=== PATIENT | male | born 1990 | race Caucasian/White ===

== ENCOUNTER 2019-05-14 20:36 | Emergency (ER) | payer OTHER ==
[~2019-05-14] VITALS: Ht 157.5 cm; Wt 81.6 kg
--- NOTE | 2019-05-14 20:45 | NUR ---
TO LOBBY A/W BED AMBULATORY, EKG DONE NSR.
--- NOTE | 2019-05-14 21:36 | NUR ---
PT AMBULATED TO ER BED 12
--- NOTE | 2019-05-14 21:45 | NUR ---
29 Y/O MALE PRESENTS TO ED, C/O CHEST PAIN 01/19. PT STATES PAIN IS INTERMITTENT FOR THE PAST 2 WEEKS, WORSENING TODAY. PAIN DOES NOT RADIATE. NO HEADACHE OR DIZZINESS. PT DENIES ANY SOB/DIFFICULTY BREATHING. PT DENIES TAKING ANY MEDICATIONS FOR PAIN. PT AT STABLE CONDITION. PT PLACED ON MONITOR.
[2019-05-14] MEDS ORDERED: KETOROLAC 30 MG/ML VIAL IM ONE (22:00)
[2019-05-14 22:35] VITALS: BP 126/65
--- NOTE | 2019-05-14 22:35 | NUR ---
PT DISCHARGED WITH PAPERWORK. RX MOTRIN. EDUCATED PT REGARDING MEDICATION. EDUCATED PT REGARDING D/C DIAGNOSIS AND INSTRUCTIONS. PT VERBALIZED UNDERSTANDING OF TEACHING. TOLD PT TO FOLLOW UP WITH PCP AND WHEN TO RETURN TO ED. PT AT STABLE CONDITION. PT STATES SOME RELIEF IN PAIN. ALL LQUESTIONS ANSWERED.
== END 2019-05-14 22:35 | disposition home or self-care (01) ==
LOC: MED 20:36
DX: M94.0 Chondrocostal junction syndrome [Tietze] (principal)
CPT/HCPCS: 71045; 96372; 99283; J1885; 93005; 99284

== ENCOUNTER 2021-04-10 11:00 | Emergency (ER) | payer OTHER ==
[~2021-04-10] VITALS: Ht 157.5 cm; Wt 81.6 kg
[2021-04-10 11:23] VITALS: BP 126/82
--- NOTE | 2021-04-10 11:27 | NUR ---
TENT 1.
--- NOTE | 2021-04-10 11:28 | NUR ---
BIB C/O COUGH, DIFFICULTY BREATHING , [address] , CHEST PAIN X 2 WEEKS. COVID + 2 WEEKS AGO. GOT SEEN BY HIS DOCTOR 5DAYS AGO & GOT AZT & FINISHED MEDICINE TODAY. O2SAT 97% AT THIS TIME.
[2021-04-10] MEDS: DEXAMETHASONE 4 MG TAB PO ONE (12:29)
--- NOTE | 2021-04-10 12:57 | NUR ---
Patient discharged with v/s stable. Written and verbal after care instructions given and explained. Patient verbalized understanding. Ambulatory with steady gait. All questions addressed prior to discharge. Advised to follow up with PMD.
[2021-04-10 13:01] VITALS: BP 119/76
== END 2021-04-10 12:57 | disposition home or self-care (01) ==
LOC: MED 11:00
DX: U07.1 COVID-19 (principal)
CPT/HCPCS: 71045; 93005; 99283; Q0092

== ENCOUNTER 2023-10-03 22:21 | Emergency (ER) | payer OTHER ==
[~2023-10-03] VITALS: Ht 160 cm; Wt 88.9 kg
[2023-10-03 22:39] VITALS: BP 160/99; PULSE 63; RESP 18; TEMP 98; O2SAT 99
[2023-10-04] MEDS: lisinopriL 20 MG TAB PO ONE (01:26)
[2023-10-04] MEDS: CLONIDINE HYDROCHLORIDE 0.1 MG TAB PO ONE (01:50)
[2023-10-04] MEDS ORDERED: AMLO5TAB PO (02:29)
[2023-10-04] MEDS ORDERED: HYDR-2853 PO (02:29)
[2023-10-04 02:30] VITALS: BP 158/101; PULSE 79; RESP 18; TEMP 98; O2SAT 99
== END 2023-10-04 02:30 | disposition home or self-care (01) ==
LOC: MED 22:21
DX: I10 Essential (primary) hypertension (principal); Z79.899 Other long term (current) drug therapy
CPT/HCPCS: 99283

== ENCOUNTER 2023-12-29 02:30 | Emergency (ER) | payer OTHER ==
[~2023-12-29] VITALS: Ht 160 cm; Wt 86.2 kg
[~2023-12-29 02:30] MED LIST: AMLO5TAB PO; HYDR-2853 PO
[2023-12-29 02:37] VITALS: BP 154/102; PULSE 70; RESP 16; TEMP 97.2; O2SAT 98
[2023-12-29] MEDS: NACL 0.9% 1,000 ML IV ONE (03:29)
[2023-12-29] MEDS: ONDANSETRON 4 MG/2 ML VIAL IVP ONE (03:31)
[2023-12-29] MEDS: KETOROLAC 30 MG/ML VIAL IVP ONE (03:35)
[2023-12-29 03:42] VITALS: BP 154/102; PULSE 70; RESP 16; TEMP 97.2
[2023-12-29 03:43] VITALS: O2SAT 98
[2023-12-29 03:52] LABS: BASOPHILS # (AUTO) 0.1 K/uL (0.00-0.22); BASOPHILS % (AUTO) 0.6 % (0.0-2.0); EOSINOPHILS # (AUTO) 0.1 K/uL (0-0.4); EOSINOPHILS % (AUTO) 0.5 % (0.0-4.0); HEMATOCRIT 49.7 % (36-52); HEMOGLOBIN 17.4 g/dL (12.0-18.0); LYMPHOCYTES # (AUTO) 2.8 K/uL (2.0-11.5); LYMPHOCYTES % (AUTO) 24.5 % (20.5-51.1); MEAN CORPUSCULAR HEMOGLOBIN 30 pg (27-31); MEAN CORPUSCULAR HGB CONC 35 g/dL (33-37); MEAN CORPUSCULAR VOLUME 84.2 fL (80-94); MONOCYTES # (AUTO) 1.1 K/uL (0.8-1.0); MONOCYTES % (AUTO) 9.6 % (1.7-9.3); NEUTROPHILS # (AUTO) 7.5 K/uL (1.8-7.7); NEUTROPHILS % (AUTO) 64.8 % (42.2-75.2); PLATELET COUNT (AUTO) 232 K/uL (140-450); RED CELL DISTRIBUTION WIDTH 12.9 % (11.6-13.7); WHITE BLOOD COUNT (AUTO) 11.6 K/uL (4.8-10.8)
[2023-12-29 04:24] LABS: ANION GAP 11.2 (8-16); CALCIUM 9.3 mg/dL (8.5-10.1); CARBON DIOXIDE 29.9 mmol/L (21-32); CREATININE 1.2 mg/dL (0.6-1.3); POTASSIUM 3.1 mmol/L (3.5-5.1)
[2023-12-29 04:30] LABS: ALBUMIN 3.3 g/dL (3.4-5.0); TOTAL BILIRUBIN 0.7 mg/dL (0.0-1.0); TOTAL PROTEIN, SERUM 9.1 g/dL (6.4-8.2)
[2023-12-29] MEDS ORDERED: ACET-8905 PO (05:30)
[2023-12-29] MEDS ORDERED: BISM262T5 PO (05:30)
== END 2023-12-29 05:36 | disposition home or self-care (01) ==
LOC: MED 02:30
DX: A08.4 Viral intestinal infection, unspecified (principal); K85.90 Acute pancreatitis without necrosis or infection, unspecified; E87.1 Hypo-osmolality and hyponatremia; E87.6 Hypokalemia; I10 Essential (primary) hypertension; Z79.1 Long term (current) use of non-steroidal anti-inflammatories (NSAID); Z79.899 Other long term (current) drug therapy
CPT/HCPCS: 36415; 74176; 80048; 80076; 83690; 85025; 96361; 96374; 96375; 99284; J1885; J2405; J7030